=== PATIENT | female | born 1990 | race Hispanic/Latino ===

== ENCOUNTER 2022-09-28 15:52 | Emergency (ER) | payer SELFPAY ==
[~2022-09-28] VITALS: Ht 160 cm; Wt 113.4 kg
[2022-09-28] MEDS ORDERED: DICLOFENAC SODI50 MG PO (17:21)
[2022-09-28] MEDS ORDERED: CYCLOBENZAPRINE10 MG PO (17:23)
== END 2022-09-28 17:52 | disposition home or self-care (01) ==
LOC: FSED 16:02
DX: M25.512 Pain in left shoulder (principal); M79.652 Pain in left thigh
CPT/HCPCS: 81003; 81025; 99283

== ENCOUNTER 2022-11-27 21:47 | Emergency (ER) | payer SELFPAY ==
[~2022-11-27 21:47] MED LIST: CYCLOBENZAPRINE10 MG PO; DICLOFENAC SODI50 MG PO
[2022-11-27] MEDS ORDERED: IBUPROFEN 600 MG TAB PO STA ×2 (22:11→22:25)
[2022-11-27] MEDS ORDERED: CIPRODEX OTIC7.5 ML EACH EAR (22:16)
[2022-11-27] MEDS ORDERED: AUGMENTIN 500-1 EACH PO (22:17)
[2022-11-27] MEDS ORDERED: IBUPROFEN 600 MG TAB ONE (22:31)
[2022-11-27 22:36] VITALS: BP 136/57
== END 2022-11-27 22:36 | disposition home or self-care (01) ==
LOC: FSED 21:55
DX: H60.91 Unspecified otitis externa, right ear (principal)
CPT/HCPCS: 99282